=== PATIENT | female | born 1970 | race African-American/Black ===

== ENCOUNTER 2024-12-15 10:27 | Emergency (ER) | payer MEDICAID, OTHER ==
[~2024-12-15] VITALS: Ht 170.2 cm; Wt 113.0 kg
[~2024-12-15 10:27] MED LIST: ASPI-1497 PO; LISI20TA31 MT; NIFE-33 MT; OMEP40CA20 PO
[2024-12-15 10:29] VITALS: O2SAT 99
[2024-12-15 10:59] VITALS: TEMP 36.7; O2SAT 100
[2024-12-15 11:00] LABS: BASOPHILS % 1.1 % (0.0-2.0); EOSINOPHILS % 0.0 % (0.0-5.0); HEMATOCRIT. 34.3 % (36.0-48.0); HEMOGLOBIN. 11.4 g/dL (12.0-16.0); LYMPHOCYTES % 22.0 % (20.0-50.0); MEAN PLATELET VOLUME 8.5 fl (7.4-10.4); MONOCYTES % 7.0 % (2.0-8.0); NEUTROPHILS % 69.9 % (40.0-76.0); PLATELET 283 x1000/uL (130-400); RED BLOOD CELL COUNT 4.02 mill/uL (4.2-5.4); RED CELL DISTRIBUTION WIDTH 13.2 % (11.6-14.6)
[2024-12-15 11:11] LABS: CREATININE 0.8 mg/dL (0.6-1.0); UREA NITROGEN BLOOD 9 mg/dL (9-23)
[2024-12-15 11:12] VITALS: BP 154/75; PULSE 63; RESP 16; TEMP 98.06
[2024-12-15 11:12] LABS: TROPONIN I HIGH SENSITIVITY < 4 ng/L (3.0-34)
[2024-12-15 11:13] LABS: ASPARTATE AMINOTRANSFERASE 15 IU/L (<34); BILIRUBIN DIRECT 0.2 mg/dL (<=3.0); BILIRUBIN TOTAL 0.7 mg/dL (0.1-1.0)
[2024-12-15 11:14] LABS: PROTEIN TOTAL 6.7 g/dL (6.0-8.3)
[2024-12-15] MEDS: NITROGLYCERIN 0.4MG TABLET SL SL ONE (11:21)
[2024-12-15] MEDS: ASPIRIN 81MG TABLET PO ONE (11:21)
[2024-12-15] MEDS ORDERED: ASPI-1160 PO (18:05)
[2024-12-15] MEDS ORDERED: LISI10TA26 PO (18:05)
[2024-12-15] MEDS ORDERED: AMLO10TA80 PO (18:05)
[2024-12-15] MEDS ORDERED: ATOR-2 PO (18:05)
== END 2024-12-15 11:45 | disposition left against medical advice (07) ==
LOC: ER 10:27
DX: R53.1 Weakness (principal); R07.89 Other chest pain; I10 Essential (primary) hypertension; E78.00 Pure hypercholesterolemia, unspecified; Z79.899 Other long term (current) drug therapy
CPT/HCPCS: 80076; 80048; 85025; 84484; 36415; 71045; 93005; 99285; Z7610